=== PATIENT | male | born 1985 | race Caucasian/White ===

== ENCOUNTER 2025-08-20 09:45 | Emergency (ER) | payer OTHER ==
[~2025-08-20] VITALS: Ht 180.3 cm; Wt 103.0 kg
[2025-08-20 11:29] VITALS: BP 116/84
== END 2025-08-20 11:30 | disposition home or self-care (01) ==
LOC: ED 09:45
DX: S93.402A Sprain of unspecified ligament of left ankle, initial encounter (principal); X50.1XXA Overexertion from prolonged static or awkward postures, initial encounter
CPT/HCPCS: 73610; 99283